=== PATIENT | male | born 1950 | race Caucasian/White ===

== ENCOUNTER 2021-06-27 08:03 | Day surgery (SDC) | payer MEDICARE, OTHER ==
[~2021-06-27 08:03] MED LIST: Lactated Ringers 1,000 ML IV SCH; cefOXitin 2 GM in Premix Bag 1 BAG IV ONE
--- NOTE | 2021-06-27 08:19 | PCM.PREANE ---
Preanesthetic Assessment - Anesthesia/Transfusion/Family Hx Anesthesia History: Prior Anesthesia Without Reaction Other Type of Anesthesia Reaction Comment: reports no known problems in past Transfusion History: No Prior Transfusion(s) Intubation History: Unknown - Review of Systems General: No Symptoms Pulmonary: No Symptoms Cardiovascular: No Symptoms Gastrointestinal: Other (BRBPR) Neurological: No Symptoms Other: Reports: None - Physical Assessment NPO Status Date: 06/27/21 NPO Status Time: 00:00 Height: 6 ft 2 in Weight: 241 lb ASA Class: 3 Mental Status: Alert & Oriented x3 Airway Class: Mallampati = 2 Dentition: Reports: Normal Dentition Thyro-Mental Finger Breadths: 3 Mouth Opening Finger Breadths: 3 ROM/Head Extension: Full Lungs: Clear to Auscultation, Normal Respiratory Effort Cardiovascular: Regular Rate, Regular Rhythm - Allergies Allergies/Adverse Reactions: Allergies Allergy/AdvReac Type Severity Reaction Status Date / Time No Known Allergies Allergy Verified 06/24/21 12:20 - Acknowledgements Anesthesia Type Planned: General Anesthesia Pt an Appropriate Candidate for the Planned Anesthesia: Yes Alternatives and Risks of Anesthesia Discussed w Pt/Guardian: Yes Pt/Guardian Understands and Agrees with Anesthesia Plan: Yes PreAnesthesia Questionnaire HEENT History: Reports: Macular Degeneration Other HEENT History: 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 Cardiovascular History: Reports: High Cholesterol, Hypertension Respiratory History: Reports: Other (See Below) Gastrointestinal History: Reports: None Other Gastrointestinal History: current rectal bleeding Genitourinary History: Reports: None Musculoskeletal History: Reports: Fracture, Osteoarthritis Other Musculoskeletal History: hx of fx scapula and leg Neurological History: Reports: None Psychiatric History: Reports: None Endocrine/Metabolic History: Reports: Obesity/BMI 30+ Hematologic History: Reports: None Immunologic History: Reports: None Oncologic (Cancer) History: Reports: None Dermatologic History: Reports: None - Past Surgical History Other Musculoskeletal Surgeries/Procedures:: hx hand surgery, left shoulder surgery and left knee replacement - SUBSTANCE USE Tobacco Use Status *Q: Former Tobacco User Days Per Week of Alcohol Use: 7 Number of Drinks Per Day: 2 Total Drinks Per Week: 14 Recreational Drug Use History: No - HOME MEDS Home Medications: Home Meds Lisinopril 20 mg PO DAILY 01/19/17 [History] - CURRENT (IN HOUSE) MEDS Current Meds: Current Medications Lactated Ringer's (Ringers, Lactated) 1,000 mls @ 125 mls/hr IV [facility]ED [facility] Cefoxitin Sodium 2 gm/ Premix 50 mls @ 100 mls/hr IV ONETIME ONE Stop: 06/27/21 08:29
[2021-06-27] MEDS ORDERED: Propofol 200 MG/20 ML SDV ONE (10:13)
[2021-06-27] MEDS ORDERED: fentaNYL 100 MCG/2 ML SDV ONE (10:14)
[2021-06-27] MEDS ORDERED: Lactated Ringers 1,000 ML IV SCH (11:00)
--- NOTE | 2021-06-27 11:02 | PCM.OPNOTE ---
- General Post-Op/Procedure Note Date of Surgery/Procedure: 06/27/21 Operative Procedure(s): Colonoscopy Pre Op Diagnosis: Rectal bleeding. Family history of colon cancer. Post-Op Diagnosis: Sigmoid diverticulosis. External hemorrhoids. Anesthesia Technique: MAC (ASA III) Primary Surgeon: Salas Jeong Internet Specialist: Stanford Carpio Condition: Good Free Text/Narrative:: DICTATION [id number] CPT CODE [id number]
--- NOTE | 2021-06-27 11:04 | PCM48HPAN ---
Post Anesthesia Note - EVALUATION WITHIN 48HRS OF ANESTHETIC Vital Signs in Normal Range: Yes Patient Participated in Evaluation: Yes Respiratory Function Stable: Yes Airway Patent: Yes Cardiovascular Function Stable: Yes Hydration Status Stable: Yes Pain Control Satisfactory: Yes Nausea and Vomiting Control Satisfactory: Yes Mental Status Recovered: Yes Vital Signs: Last Vital Signs Temp 97.2 F 06/27/21 08:15 Pulse 74 06/27/21 10:58 Resp 14 06/27/21 10:58 BP 118/76 06/27/21 10:58 Pulse Ox 98 06/27/21 10:58
--- NOTE | 2021-06-27 11:04 | PCM.POSTAN ---
POST ANESTHESIA ASSESSMENT - MENTAL STATUS Mental Status: Alert, Oriented - VITAL SIGNS Vital Signs: Last Vital Signs Temp 97.2 F 06/27/21 08:15 Pulse 74 06/27/21 10:58 Resp 14 06/27/21 10:58 BP 118/76 06/27/21 10:58 Pulse Ox 98 06/27/21 10:58 - RESPIRATORY Respiratory Status: Respiratory Rate WNL, Airway Patent, O2 Saturation Stable - CARDIOVASCULAR CV Status: Pulse Rate WNL, Blood Pressure Stable - GASTROINTESTINAL GI Status: No Symptoms - POST OP HYDRATION Hydration Status: Adequate & Stable
[2021-06-27 11:56] VITALS: BP 139/87; PULSE 68
--- NOTE | 2021-06-27 14:39 | OR ---
SURGEON: Salas Jeong M.D. DATE OF PROCEDURE: 06/27/2021 OPERATION PERFORMED: Colonoscopy. PRIMARY SURGEON: Salas Jeong M.D. [employer]KER: Senior Librarian: ELIZABETH [employer]s student. ANESTHESIA: MAC. ASA CLASSIFICATION: III. PREOPERATIVE DIAGNOSES: 1. Rectal bleeding. 2. Family history of colon cancer. POSTOPERATIVE DIAGNOSES: 1. Mild to moderate sigmoid diverticulosis. 2. External hemorrhoids. DESCRIPTION OF PROCEDURE: The patient was taken to the endoscopy room and positioned on the endoscopy table in the left lateral decubitus position. Time-out was called for appropriate identification of patient and procedure. Monitored anesthesia care was provided. The colonoscope was inserted into the rectum and advanced with minimal difficulty to the cecum. The cecum was identified by internal landmarks and external pressure. The colonoscope was retroflexed to visualize the ascending colon from below and then straightened and slowly withdrawn. The cecum, ascending colon, hepatic flexure, transverse colon, splenic flexure, and descending colon showed no tumors, polyps, diverticula, or angiodysplastic changes. A few scattered diverticula were noted in the sigmoid colon. No stricture or spasm was noted, and no polyps or tumors were encountered in the sigmoid colon. The colonoscope was then withdrawn to the rectum and retroflexed to visualize the anal orifice from above. No internal hemorrhoids were noted. The patient did have external hemorrhoids. No distal rectal tumors or polyps were encountered. The colonoscope was then straightened, the rectum aspirated, and the colonoscope removed. MAMIE / CAPRICE /[id number]
== END 2021-06-27 11:32 | disposition home or self-care (01) ==
LOC: MW.SDS 08:03
PROVIDERS: ATTEND Surgery
DX: K57.31 Diverticulosis of large intestine without perforation or abscess with bleeding (principal); K64.4 Residual hemorrhoidal skin tags; K42.9 Umbilical hernia without obstruction or gangrene; I12.9 Hypertensive chronic kidney disease with stage 1 through stage 4 chronic kidney disease, or unspecified chronic kidney disease; N18.31 Chronic kidney disease, stage 3a; N52.9 Male erectile dysfunction, unspecified; Z79.899 Other long term (current) drug therapy; Z98.890 Other specified postprocedural states; Z80.0 Family history of malignant neoplasm of digestive organs; Z87.891 Personal history of nicotine dependence
CPT/HCPCS: 45378; J2704; J3010; J7120; 00811